=== PATIENT | male | born 1985 | race Caucasian/White ===

== ENCOUNTER 2020-01-25 08:05 | Outpatient (CLI) | payer MEDICARE, MEDICAID, SELFPAY | END 2020-01-25 08:06 | disposition home or self-care (01) | LOC: WOUND 08:08 | PROVIDERS: Family Provider Registered Nurse; PCP Registered Nurse; Visit Provider Nurse Practitioner Family | DX: I87.2 Venous insufficiency (chronic) (peripheral) (principal); L97.812 Non-pressure chronic ulcer of other part of right lower leg with fat layer exposed | CPT/HCPCS: 11042; 87070; 87077; 87176; 87186; 87205; A6545; G0463 ==

== ENCOUNTER 2020-02-01 08:13 | Outpatient (CLI) | payer MEDICARE, MEDICAID, SELFPAY | END 2020-02-01 08:14 | disposition home or self-care (01) | LOC: WOUND 08:14 | PROVIDERS: Family Provider Registered Nurse; PCP Registered Nurse; Visit Provider Thoracic Surgery (Cardiothoracic Vascular Surgery) | DX: I87.2 Venous insufficiency (chronic) (peripheral) (principal); L97.812 Non-pressure chronic ulcer of other part of right lower leg with fat layer exposed | CPT/HCPCS: 11042 ==

== ENCOUNTER 2020-02-08 08:07 | Outpatient (CLI) | payer MEDICARE, MEDICAID, SELFPAY | END 2020-02-08 08:08 | disposition home or self-care (01) | LOC: WOUND 08:08 | PROVIDERS: Family Provider Registered Nurse; PCP Registered Nurse; Visit Provider Nurse Practitioner Family | DX: I87.2 Venous insufficiency (chronic) (peripheral) (principal); L97.812 Non-pressure chronic ulcer of other part of right lower leg with fat layer exposed; M79.604 Pain in right leg; M79.605 Pain in left leg | CPT/HCPCS: 11042; 93970 ==

== ENCOUNTER 2020-02-08 10:36 | Outpatient (CLI) | payer MEDICARE, MEDICAID, SELFPAY ==
--- NOTE | 2020-02-08 11:00 | USCV_ITS ---
Sammy Ellison Age: 34 Gender: M : 1985 Exam Date: 02/08/2020 11:08 Ordering Phys: Sarabjit Carbone MD ([email or web address]) Technologist: Kim Middleton Exam Location: [facility] – [place] Indication: HISTORY: Lower extremity pain. PROCEDURES: Bilateral duplex Venous Insufficiency study of the Deep and Superficial systems was carried out according to normal protocol with the patient in supine positon for deep system and dependent position for the superficial system. FINDINGS: There is no evidence of bilateral deep vein thrombosis. No evidence of superficial thrombosis in the bilateral saphenous system. Reflux noted within the proximal and mid Right SSV. CONCLUSIONS 1. No evidence of DVT in the above-mentioned identifiable veins. 2. Significant venous reflux of greater than 500 ms were noted at the proximal and mid segments of the small saphenous vein on the right side. The reflux times were 4280 and 3320 milliseconds respectively. These venous segments where 0.51 and 1.06 cm deep from the surface and with a diameter of 0.3 and 0.44 cm. 3. The other venous segments dimensions and depth from the surface are as mentioned above 4. No significant venous reflux on the left side Dr Renetta Christianson MD [facility] (Electronically Signed) Final Date: 09 February 2020 08:25 S
== END 2020-02-08 10:37 | disposition home or self-care (01) ==
LOC: RAD 10:42
PROVIDERS: PCP Registered Nurse; Visit Provider Internal Medicine Cardiovascular Disease
DX: M79.604 Pain in right leg (principal); M79.605 Pain in left leg
CPT/HCPCS: 93970

== ENCOUNTER 2020-02-13 12:59 | Outpatient (CLI) | payer MEDICARE, MEDICAID, SELFPAY ==
--- NOTE | 2020-02-13 13:02 | USCV_ITS ---
Ellison Sammy Age: 34 Gender: M : 1985 Exam Date: 02/13/2020 12:54 Ordering Phys: Naa Mckeon Technologist: Exam Location: [facility] [place] Indication: ULCER RT LEG RIGHT LEFT Brachial 115.00 mmHg Brachial 110.00 mmHg Pressure (mmHg) Waveform Pressure (mmHg) Waveform 140.00 Above Knee 140.00 151.00 Below Knee 138.00 142.00 OPERATING ROOM RN 138.00 142.00 DPA 138.00 1.23 Ankle/Brachial Index 1.20 1.12 Pre-Exercise Toe/Brachial Index 0.79 FINDINGS Normal resting RACHEAL and TBI's bilaterally Normal PVR waveforms CONCLUSIONS No significant arterial obstruction, based on the above findings Dr Renetta Christianson MD [facility] (Electronically Signed) Final Date: 14 February 2020 18:43 S
== END 2020-02-13 13:00 | disposition home or self-care (01) ==
LOC: US 13:01
PROVIDERS: PCP Registered Nurse; Visit Provider Nurse Practitioner Family
DX: M79.604 Pain in right leg (principal); M79.605 Pain in left leg; L53.9 Erythematous condition, unspecified; L97.929 Non-pressure chronic ulcer of unspecified part of left lower leg with unspecified severity; L97.919 Non-pressure chronic ulcer of unspecified part of right lower leg with unspecified severity
CPT/HCPCS: 93923

== ENCOUNTER 2020-02-15 13:05 | Outpatient (CLI) | payer MEDICARE, MEDICAID, SELFPAY | END 2020-02-15 13:06 | disposition home or self-care (01) | LOC: WOUND 13:07 | PROVIDERS: PCP Registered Nurse; Visit Provider Emergency Medicine | DX: I87.2 Venous insufficiency (chronic) (peripheral) (principal); L97.812 Non-pressure chronic ulcer of other part of right lower leg with fat layer exposed | CPT/HCPCS: 11042; 87070; 87077; 87176; 87186; 87205 ==

== ENCOUNTER 2020-02-17 13:15 | Outpatient (CLI) | payer MEDICARE, MEDICAID, SELFPAY | END 2020-02-17 13:16 | disposition home or self-care (01) | LOC: WOUND 13:17 | PROVIDERS: PCP Registered Nurse; Visit Provider Surgery | DX: I87.2 Venous insufficiency (chronic) (peripheral) (principal); L97.812 Non-pressure chronic ulcer of other part of right lower leg with fat layer exposed | CPT/HCPCS: 29581 ==

== ENCOUNTER 2020-02-22 13:43 | Outpatient (CLI) | payer MEDICARE, MEDICAID, SELFPAY | END 2020-02-22 13:44 | disposition home or self-care (01) | LOC: WOUND 13:45 | PROVIDERS: PCP Registered Nurse; Visit Provider Emergency Medicine | DX: I87.2 Venous insufficiency (chronic) (peripheral) (principal); L97.812 Non-pressure chronic ulcer of other part of right lower leg with fat layer exposed | CPT/HCPCS: 11042 ==

== ENCOUNTER 2020-02-28 10:00 | Outpatient (CLI) | payer MEDICARE, MEDICAID, SELFPAY ==
[2020-02-25 17:02] LABS: Coronavirus Lab Test PTC Negative
== END 2020-02-28 10:01 | disposition home or self-care (01) ==
LOC: LAB 11-24 14:02
PROVIDERS: PCP Registered Nurse; Visit Provider Internal Medicine Cardiovascular Disease
DX: Z20.828 Contact with and (suspected) exposure to other viral communicable diseases (principal)
CPT/HCPCS: 87635

== ENCOUNTER 2020-02-29 08:51 | Outpatient (CLI) | payer MEDICARE, MEDICAID, SELFPAY | END 2020-02-29 08:52 | disposition home or self-care (01) | LOC: WOUND 08:52 | PROVIDERS: PCP Registered Nurse; Visit Provider Emergency Medicine | DX: I87.2 Venous insufficiency (chronic) (peripheral) (principal); L97.512 Non-pressure chronic ulcer of other part of right foot with fat layer exposed | CPT/HCPCS: 15275; Q4160 ==

== ENCOUNTER 2020-03-07 08:40 | Outpatient (CLI) | payer MEDICARE, MEDICAID, SELFPAY | END 2020-03-07 08:41 | disposition home or self-care (01) | LOC: WOUND 08:41 | PROVIDERS: PCP Registered Nurse; Visit Provider Emergency Medicine | DX: I87.2 Venous insufficiency (chronic) (peripheral) (principal); L97.812 Non-pressure chronic ulcer of other part of right lower leg with fat layer exposed | CPT/HCPCS: 15271; Q4160 ==

== ENCOUNTER 2020-03-14 09:39 | Outpatient (CLI) | payer MEDICARE, MEDICAID, SELFPAY | END 2020-03-14 09:40 | disposition home or self-care (01) | LOC: WOUND 09:40 | PROVIDERS: PCP Registered Nurse; Visit Provider Nurse Practitioner Family | DX: I87.2 Venous insufficiency (chronic) (peripheral) (principal); L97.812 Non-pressure chronic ulcer of other part of right lower leg with fat layer exposed | CPT/HCPCS: 15271; Q4160 ==

== ENCOUNTER 2020-03-21 10:42 | Outpatient (CLI) | payer MEDICARE, MEDICAID, SELFPAY | END 2020-03-21 10:43 | disposition home or self-care (01) | LOC: WOUND 10:43 | PROVIDERS: PCP Registered Nurse; Visit Provider Nurse Practitioner Family | DX: I87.2 Venous insufficiency (chronic) (peripheral) (principal); L97.812 Non-pressure chronic ulcer of other part of right lower leg with fat layer exposed | CPT/HCPCS: 11042 ==

== ENCOUNTER 2020-03-28 07:56 | Outpatient (CLI) | payer MEDICARE, MEDICAID, SELFPAY | END 2020-03-28 07:57 | disposition home or self-care (01) | LOC: WOUND 07:57 | PROVIDERS: PCP Registered Nurse; Visit Provider Surgery | DX: I87.2 Venous insufficiency (chronic) (peripheral) (principal); L97.812 Non-pressure chronic ulcer of other part of right lower leg with fat layer exposed | CPT/HCPCS: 29581 ==

== ENCOUNTER 2020-04-04 08:25 | Outpatient (CLI) | payer MEDICARE, MEDICAID, SELFPAY | END 2020-04-04 08:26 | disposition home or self-care (01) | LOC: WOUND 08:25 | PROVIDERS: PCP Registered Nurse; Visit Provider Nurse Practitioner Family | DX: I87.2 Venous insufficiency (chronic) (peripheral) (principal); L97.812 Non-pressure chronic ulcer of other part of right lower leg with fat layer exposed | CPT/HCPCS: 11042 ==

== ENCOUNTER 2020-04-11 08:38 | Outpatient (CLI) | payer MEDICARE, MEDICAID, SELFPAY | END 2020-04-11 08:39 | disposition home or self-care (01) | LOC: WOUND 08:41 | PROVIDERS: PCP Registered Nurse; Visit Provider Thoracic Surgery (Cardiothoracic Vascular Surgery) | DX: I87.2 Venous insufficiency (chronic) (peripheral) (principal); L97.812 Non-pressure chronic ulcer of other part of right lower leg with fat layer exposed | CPT/HCPCS: 11042 ==

== ENCOUNTER → 2020-04-16 07:14 | Day surgery (SDC) | payer MEDICARE, MEDICAID, SELFPAY ==
[2020-04-14 14:53] LABS: Quest SARS-CoV-2 RNA NOT DETECTED (NOT DETECTED)
[2020-04-16 08:41] VITALS: BP 130/83; PULSE 77; RESP 18; TEMP 37; O2SAT 100; BMI 27.0
--- NOTE | 2020-04-16 09:04 | PC.NURSE ---
procedure delay delay due to dr fernandez intervening in yard labor supervisor with dr rosen pt. pt notified of delay.
--- NOTE | 2020-04-16 09:34 | P.HP_ITS ---
Same Day Surgery H&P Indication for Procedure/HPI DATE OF PROCEDURE: April 16, 2020 CHIEF COMPLAINT/INDICATIONFOR SURGICAL PROCEDURE: Symptomatic varicose veins with swollen painful right foot which has developed neuropathy. Patient has failed conservative management PREOP DIAGNOSIS: Symptomatic varicose veins PLANNED PROCEDRUE: Operation Date: 04/16/20 08:30 Proposed Procedures p Venous Ablations(Not Applicable) - Sarabjit Carbone MD Patient continues to have lower extremity edema with varicose veins on the back of right lower leg. He underwent ultrasound which showed significant venous reflux and right short saphenous vein. He has failed conservative management for the last more than 4 months by wearing compression stockings. He continues to be symptomatic with pain cramps difficulty in walking due to edema and paresthesia due to a nerve problem. PROCEDURES: Bilateral duplex Venous Insufficiency study of the Deep and Superficial systems was carried out according to normal protocol with the patient in supine positon for deep system and dependent position for the superficial system. FINDINGS: There is no evidence of bilateral deep vein thrombosis. No evidence of superficial thrombosis in the bilateral saphenous system. Reflux noted within the proximal and mid Right SSV. CONCLUSIONS 1. No evidence of DVT in the above-mentioned identifiable veins. 2. Significant venous reflux of greater than 500 ms were noted at the proximal and mid segments of the small saphenous vein on the right side. The reflux times were 4280 and 3320 milliseconds respectively. These venous segments where 0.51 and 1.06 cm deep from the surface and with a diameter of 0.3 and 0.44 cm. 3. The other venous segments dimensions and depth from the surface are as mentioned above 4. No significant venous reflux on the left side Dr Renetta Christianson MD [facility] (Electronically Signed) Final Date: 09 February 2020` Today patient was brought in after failing the conservative management for right short saphenous vein ablation. Patient has been explained by myself in detail all the risk benefit and alternative for the procedure. He has been given the option for referral to surgery. He understand the risk of damaging sural nerve during ablation leading to severe neuropathy and dropfoot, he understand the risk of deep venous thrombosis and pulmonary embolism. He would like to proceed with it. He thinks he is getting worse. Medications/Allergies* Home Medications Medication Instructions Recorded Confirmed Type levetiracetam 500 mg tablet 500 mg PO BID 11/25/19 04/13/20 History levocetirizine 5 mg tablet 5 mg PO DAILY 11/25/19 04/13/20 History oxcarbazepine 600 mg tablet 600 mg PO BID 11/25/19 04/13/20 History topiramate 200 mg tablet 200 mg PO BID 11/25/19 04/13/20 History Allergies/Adverse Reactions Allergy/AdvReac Type Severity Reaction Status Date / Time pollen extracts Allergy Unknown unknown Verified 02/17/20 11:50 Pertinent History/Comorbid Conditions* Medical History (Updated 02/21/20 @ 21:44 by Sarabjit Carbone MD) Pericardial effusion Varicose 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 Recommendations Surgery/Procedure today Coding Level of Care Code Acute Production Team Manager for Chg Fwd Diagnoses Varicose veins of bilateral lower extremities with other complications I83.893
--- NOTE | 2020-04-16 09:38 | W.PM.OPSUD ---
Surgery/Procedure H&P Update DATE OF PROCEDURE: April 16, 2020 DATE H&P PERFORMED: 04/16/20 H&P UPDATE INFORMATION: I have examined patient prior to procedure and No changes to prior documentation PREOP DIAGNOSIS: Symptomatic varicose veins PLANNED PROCEDURE: Operation Date: 04/16/20 08:30 Proposed Procedures p Venous Ablations(Not Applicable) - Sarabjit Carbone MD PATIENT REASSESSED PRIOR TO SEDATION, WITH NO CHANGE NOTED: Yes PHYSICAL EXAM: alert, oriented x 3, clear to auscultation bilaterally and regular rate & rhythm AIRWAY EVAL/ANESTHESIA PLAN: normal airway, ASA II, Risks, benefits & alternatives of sedation and/or procedure discussed and Patient agrees to continue as planned
--- NOTE | 2020-04-16 10:52 | PM.PROC ---
Procedure Note: Date of procedure: 04/16/20 Pre-procedure diagnosis: Symptomatic varicose veins of right short saphenous territory Post-procedure diagnosis: same Other Information: Under sterile ice condition after careful mapping short saphenous vein under ultrasound guidance I introduced needle in the short saphenous vein just above the mid gastrocnemius level on the right side in order to avoid the sural nerve on the lower and lateral border. My wire did not pass beyond the distal end of short saphenous due to a lot of collaterals and try decrease. We tried coronary wire. I also tried introducing 6 [place] short sheath over which I tried ablation catheter however because of a lot of resistance and because of the fact patient has lot of collaterals coming out of distal end of short saphenous vein we aborted the procedure. We have a plan to send the patient to the vascular surgery for possible venous stripping or glue/radiofrequency ablation which ever is appropriate along with foam injections. Please note that procedure was not successful therefore we stopped it. Patient has no complication. Coding Level of Care Code Acute Digital Watch Assembler for Enrique Quinteros
--- NOTE | 2020-04-16 10:53 | PC.NURSE ---
Procedure Note Unable to perform procedure. See Dr. Carbone's progress note. Unable to obtain venous access in the right short saph despite multiple attempts. The sites were covered with 4 x 4s and secured with coban.
[2020-04-16 11:00] VITALS: BP 128/80; PULSE 76; RESP 16; TEMP 37; O2SAT 96
== END | disposition home or self-care (01) ==
PROVIDERS: PCP Registered Nurse; Visit Provider Internal Medicine Cardiovascular Disease
PROC: (CPT 37799; principal; 2020-04-16 08:30)
DX: I83.893 Varicose veins of bilateral lower extremities with other complications (principal)
CPT/HCPCS: 37799; 12345; 87635; C1769; C1888; C1894; J7040; J7050

== ENCOUNTER 2020-04-18 14:56 | Outpatient (CLI) | payer MEDICARE, MEDICAID, SELFPAY | END 2020-04-18 14:57 | disposition home or self-care (01) | LOC: WOUND 14:57 | PROVIDERS: PCP Registered Nurse; Visit Provider Thoracic Surgery (Cardiothoracic Vascular Surgery) | DX: I87.2 Venous insufficiency (chronic) (peripheral) (principal); L97.812 Non-pressure chronic ulcer of other part of right lower leg with fat layer exposed | CPT/HCPCS: 11042 ==

== ENCOUNTER 2020-04-25 08:50 | Outpatient (CLI) | payer MEDICARE, MEDICAID, SELFPAY | END 2020-04-25 08:51 | disposition home or self-care (01) | LOC: WOUND 08:51 | PROVIDERS: PCP Registered Nurse; Visit Provider Thoracic Surgery (Cardiothoracic Vascular Surgery) | DX: I87.2 Venous insufficiency (chronic) (peripheral) (principal); L97.812 Non-pressure chronic ulcer of other part of right lower leg with fat layer exposed | CPT/HCPCS: 11042 ==

== ENCOUNTER 2020-05-02 13:34 | Outpatient (CLI) | payer MEDICARE, MEDICAID, SELFPAY | END 2020-05-02 13:35 | disposition home or self-care (01) | LOC: WOUND 13:35 | PROVIDERS: PCP Registered Nurse; Visit Provider Thoracic Surgery (Cardiothoracic Vascular Surgery) | DX: I87.2 Venous insufficiency (chronic) (peripheral) (principal); L97.812 Non-pressure chronic ulcer of other part of right lower leg with fat layer exposed | CPT/HCPCS: 11042 ==

== ENCOUNTER 2020-05-16 10:32 | Outpatient (CLI) | payer MEDICARE, MEDICAID, SELFPAY | END 2020-05-16 10:33 | disposition home or self-care (01) | LOC: WOUND 10:33 | PROVIDERS: PCP Registered Nurse; Visit Provider Nurse Practitioner Family | DX: I87.2 Venous insufficiency (chronic) (peripheral) (principal); L97.812 Non-pressure chronic ulcer of other part of right lower leg with fat layer exposed | CPT/HCPCS: 11042 ==

== ENCOUNTER 2020-05-23 11:05 | Outpatient (CLI) | payer MEDICARE, MEDICAID, SELFPAY | END 2020-05-23 11:06 | disposition home or self-care (01) | LOC: WOUND 11:07 | PROVIDERS: PCP Registered Nurse; Visit Provider Thoracic Surgery (Cardiothoracic Vascular Surgery) | DX: I87.2 Venous insufficiency (chronic) (peripheral) (principal); L97.812 Non-pressure chronic ulcer of other part of right lower leg with fat layer exposed | CPT/HCPCS: 11042 ==

== ENCOUNTER 2020-06-06 09:20 | Outpatient (CLI) | payer MEDICARE, MEDICAID, SELFPAY | END 2020-06-06 09:21 | disposition home or self-care (01) | LOC: WOUND 09:21 | PROVIDERS: PCP Registered Nurse; Visit Provider Thoracic Surgery (Cardiothoracic Vascular Surgery) | DX: I87.2 Venous insufficiency (chronic) (peripheral) (principal); L97.812 Non-pressure chronic ulcer of other part of right lower leg with fat layer exposed | CPT/HCPCS: 11042 ==

== ENCOUNTER 2020-06-13 09:05 | Outpatient (CLI) | payer MEDICARE, MEDICAID, SELFPAY | END 2020-06-13 09:06 | disposition home or self-care (01) | LOC: WOUND 09:06 | PROVIDERS: PCP Registered Nurse; Visit Provider Nurse Practitioner Family | DX: I87.2 Venous insufficiency (chronic) (peripheral) (principal); L97.812 Non-pressure chronic ulcer of other part of right lower leg with fat layer exposed | CPT/HCPCS: 11042 ==

== ENCOUNTER 2020-06-20 08:30 | Outpatient (CLI) | payer MEDICARE, MEDICAID, SELFPAY | END 2020-06-20 08:31 | disposition home or self-care (01) | LOC: WOUND 08:34 | PROVIDERS: PCP Registered Nurse; Visit Provider Nurse Practitioner Family | DX: I87.2 Venous insufficiency (chronic) (peripheral) (principal); L97.812 Non-pressure chronic ulcer of other part of right lower leg with fat layer exposed | CPT/HCPCS: 29581 ==

== ENCOUNTER 2020-06-27 09:08 | Outpatient (CLI) | payer MEDICARE, MEDICAID, SELFPAY | END 2020-06-27 09:09 | disposition home or self-care (01) | LOC: WOUND 09:09 | PROVIDERS: Visit Provider Thoracic Surgery (Cardiothoracic Vascular Surgery) | DX: I87.2 Venous insufficiency (chronic) (peripheral) (principal); L97.812 Non-pressure chronic ulcer of other part of right lower leg with fat layer exposed | CPT/HCPCS: 15271; Q4160 ==

== ENCOUNTER 2020-07-04 08:46 | Outpatient (CLI) | payer MEDICARE, MEDICAID, SELFPAY | END 2020-07-04 08:47 | disposition home or self-care (01) | LOC: WOUND 08:47 | PROVIDERS: Visit Provider Thoracic Surgery (Cardiothoracic Vascular Surgery) | DX: I87.2 Venous insufficiency (chronic) (peripheral) (principal); L97.812 Non-pressure chronic ulcer of other part of right lower leg with fat layer exposed | CPT/HCPCS: 15271; Q4160 ==

== ENCOUNTER 2020-07-11 08:58 | Outpatient (CLI) | payer MEDICARE, MEDICAID, SELFPAY | END 2020-07-11 08:59 | disposition home or self-care (01) | LOC: WOUND 08:59 | PROVIDERS: Visit Provider Thoracic Surgery (Cardiothoracic Vascular Surgery) | DX: I87.2 Venous insufficiency (chronic) (peripheral) (principal); L97.812 Non-pressure chronic ulcer of other part of right lower leg with fat layer exposed | CPT/HCPCS: 11042 ==

== ENCOUNTER 2020-07-19 13:35 | Outpatient (CLI) | payer MEDICARE, MEDICAID, SELFPAY | END 2020-07-19 13:36 | disposition home or self-care (01) | LOC: WOUND 13:36 | PROVIDERS: Visit Provider Thoracic Surgery (Cardiothoracic Vascular Surgery) | DX: L97.812 Non-pressure chronic ulcer of other part of right lower leg with fat layer exposed (principal); I87.2 Venous insufficiency (chronic) (peripheral) | CPT/HCPCS: 11042 ==

== ENCOUNTER 2020-07-24 10:36 | Outpatient (CLI) | payer MEDICARE, MEDICAID, SELFPAY | END 2020-07-24 10:37 | disposition home or self-care (01) | LOC: WOUND 10:36 | PROVIDERS: Visit Provider Thoracic Surgery (Cardiothoracic Vascular Surgery) | DX: L97.812 Non-pressure chronic ulcer of other part of right lower leg with fat layer exposed (principal); I87.2 Venous insufficiency (chronic) (peripheral) | CPT/HCPCS: 11042 ==

== ENCOUNTER 2020-08-15 11:17 | Outpatient (CLI) | payer MEDICARE, MEDICAID, SELFPAY | END 2020-08-15 11:18 | disposition home or self-care (01) | LOC: WOUND 11:18 | PROVIDERS: Visit Provider Thoracic Surgery (Cardiothoracic Vascular Surgery) | DX: I87.2 Venous insufficiency (chronic) (peripheral) (principal); L97.812 Non-pressure chronic ulcer of other part of right lower leg with fat layer exposed | CPT/HCPCS: 11042 ==

== ENCOUNTER 2020-08-21 11:09 | Outpatient (CLI) | payer MEDICARE, MEDICAID, SELFPAY | END 2020-08-21 11:10 | disposition home or self-care (01) | LOC: WOUND 11:11 | PROVIDERS: Visit Provider Thoracic Surgery (Cardiothoracic Vascular Surgery) | DX: I87.2 Venous insufficiency (chronic) (peripheral) (principal); L97.812 Non-pressure chronic ulcer of other part of right lower leg with fat layer exposed | CPT/HCPCS: 11042 ==

== ENCOUNTER 2020-08-28 11:06 | Outpatient (CLI) | payer MEDICARE, MEDICAID, SELFPAY | END 2020-08-28 11:07 | disposition home or self-care (01) | LOC: WOUND 11:08 | PROVIDERS: Visit Provider Thoracic Surgery (Cardiothoracic Vascular Surgery) | DX: I87.2 Venous insufficiency (chronic) (peripheral) (principal); L97.812 Non-pressure chronic ulcer of other part of right lower leg with fat layer exposed | CPT/HCPCS: 15271; Q4187 ==

== ENCOUNTER 2020-08-31 14:55 | Outpatient (CLI) | payer MEDICARE, MEDICAID, SELFPAY | END 2020-08-31 14:56 | disposition home or self-care (01) | LOC: WOUND 14:56 | PROVIDERS: Visit Provider Surgery | DX: I87.2 Venous insufficiency (chronic) (peripheral) (principal); L97.812 Non-pressure chronic ulcer of other part of right lower leg with fat layer exposed | CPT/HCPCS: 29581 ==

== ENCOUNTER 2020-09-04 13:51 | Outpatient (CLI) | payer MEDICARE, MEDICAID, SELFPAY | END 2020-09-04 13:52 | disposition home or self-care (01) | LOC: WOUND 13:52 | PROVIDERS: Visit Provider Thoracic Surgery (Cardiothoracic Vascular Surgery) | DX: I87.2 Venous insufficiency (chronic) (peripheral) (principal); L97.812 Non-pressure chronic ulcer of other part of right lower leg with fat layer exposed | CPT/HCPCS: 15271; Q4187 ==

== ENCOUNTER 2020-09-11 11:17 | Outpatient (CLI) | payer MEDICARE, MEDICAID, SELFPAY | END 2020-09-11 11:18 | disposition home or self-care (01) | LOC: WOUND 11:18 | PROVIDERS: PCP Registered Nurse; Visit Provider Thoracic Surgery (Cardiothoracic Vascular Surgery) | DX: I87.2 Venous insufficiency (chronic) (peripheral) (principal); L97.812 Non-pressure chronic ulcer of other part of right lower leg with fat layer exposed | CPT/HCPCS: 11042 ==

== ENCOUNTER 2020-09-18 10:40 | Outpatient (CLI) | payer MEDICARE, MEDICAID, SELFPAY | END 2020-09-18 10:41 | disposition home or self-care (01) | LOC: WOUND 10:43 | PROVIDERS: PCP Registered Nurse; Visit Provider Thoracic Surgery (Cardiothoracic Vascular Surgery) | DX: I87.2 Venous insufficiency (chronic) (peripheral) (principal); L97.812 Non-pressure chronic ulcer of other part of right lower leg with fat layer exposed | CPT/HCPCS: 11042 ==

== ENCOUNTER 2020-09-25 09:08 | Outpatient (CLI) | payer MEDICARE, MEDICAID, SELFPAY | END 2020-09-25 09:09 | disposition home or self-care (01) | LOC: WOUND 09:09 | PROVIDERS: PCP Registered Nurse; Visit Provider Thoracic Surgery (Cardiothoracic Vascular Surgery) | DX: I87.2 Venous insufficiency (chronic) (peripheral) (principal); L97.812 Non-pressure chronic ulcer of other part of right lower leg with fat layer exposed | CPT/HCPCS: 11042 ==

== ENCOUNTER 2020-10-02 08:58 | Outpatient (CLI) | payer MEDICARE, MEDICAID, SELFPAY | END 2020-10-02 08:59 | disposition home or self-care (01) | LOC: WOUND 08:59 | PROVIDERS: PCP Registered Nurse; Visit Provider Thoracic Surgery (Cardiothoracic Vascular Surgery) | DX: I87.2 Venous insufficiency (chronic) (peripheral) (principal); L97.812 Non-pressure chronic ulcer of other part of right lower leg with fat layer exposed | CPT/HCPCS: 11042 ==

== ENCOUNTER 2020-10-09 09:08 | Outpatient (CLI) | payer MEDICARE, MEDICAID, SELFPAY | END 2020-10-09 09:09 | disposition home or self-care (01) | LOC: WOUND 09:09 | PROVIDERS: PCP Registered Nurse; Visit Provider Thoracic Surgery (Cardiothoracic Vascular Surgery) | DX: I87.2 Venous insufficiency (chronic) (peripheral) (principal); L97.812 Non-pressure chronic ulcer of other part of right lower leg with fat layer exposed | CPT/HCPCS: 11042 ==

== ENCOUNTER 2020-10-16 09:18 | Outpatient (CLI) | payer MEDICARE, MEDICAID, SELFPAY | END 2020-10-16 09:19 | disposition home or self-care (01) | LOC: WOUND 09:20 | PROVIDERS: PCP Registered Nurse; Visit Provider Thoracic Surgery (Cardiothoracic Vascular Surgery) | DX: I87.2 Venous insufficiency (chronic) (peripheral) (principal); L97.812 Non-pressure chronic ulcer of other part of right lower leg with fat layer exposed | CPT/HCPCS: 97597 ==

== ENCOUNTER 2020-10-24 14:29 | Outpatient (CLI) | payer MEDICARE, MEDICAID, SELFPAY | END 2020-10-24 14:30 | disposition home or self-care (01) | LOC: WOUND 14:31 | PROVIDERS: PCP Registered Nurse; Visit Provider Thoracic Surgery (Cardiothoracic Vascular Surgery) | DX: I87.2 Venous insufficiency (chronic) (peripheral) (principal); L97.812 Non-pressure chronic ulcer of other part of right lower leg with fat layer exposed | CPT/HCPCS: 11042 ==

== ENCOUNTER 2020-10-30 11:05 | Outpatient (CLI) | payer MEDICARE, MEDICAID, SELFPAY | END 2020-10-30 11:06 | disposition home or self-care (01) | LOC: WOUND 11:06 | PROVIDERS: PCP Registered Nurse; Visit Provider Thoracic Surgery (Cardiothoracic Vascular Surgery) | DX: Z09 Encounter for follow-up examination after completed treatment for conditions other than malignant neoplasm (principal) | CPT/HCPCS: 99212 ==

== ENCOUNTER 2020-11-06 10:19 | Outpatient (CLI) | payer MEDICARE, MEDICAID, SELFPAY | END 2020-11-06 10:20 | disposition home or self-care (01) | LOC: WOUND 10:20 | PROVIDERS: PCP Registered Nurse; Visit Provider Thoracic Surgery (Cardiothoracic Vascular Surgery) | DX: Z09 Encounter for follow-up examination after completed treatment for conditions other than malignant neoplasm (principal) | CPT/HCPCS: 99212 ==

== ENCOUNTER 2020-11-15 10:45 | Outpatient (CLI) | payer MEDICARE, MEDICAID, SELFPAY | END 2020-11-15 10:46 | disposition home or self-care (01) | LOC: WOUND 10:46 | PROVIDERS: PCP Registered Nurse; Visit Provider Nurse Practitioner Family | DX: I87.2 Venous insufficiency (chronic) (peripheral) (principal); L97.811 Non-pressure chronic ulcer of other part of right lower leg limited to breakdown of skin | CPT/HCPCS: 29581 ==

== ENCOUNTER 2020-11-22 10:34 | Outpatient (CLI) | payer MEDICARE, MEDICAID, SELFPAY | END 2020-11-22 10:35 | disposition home or self-care (01) | LOC: WOUND 10:36 | PROVIDERS: PCP Registered Nurse; Visit Provider Nurse Practitioner Family | DX: I87.2 Venous insufficiency (chronic) (peripheral) (principal); L97.811 Non-pressure chronic ulcer of other part of right lower leg limited to breakdown of skin | CPT/HCPCS: 11042 ==

== ENCOUNTER 2020-11-27 09:15 | Outpatient (CLI) | payer MEDICARE, MEDICAID, SELFPAY | END 2020-11-27 09:16 | disposition home or self-care (01) | LOC: WOUND 09:15 | PROVIDERS: PCP Registered Nurse; Visit Provider Thoracic Surgery (Cardiothoracic Vascular Surgery) | DX: Z09 Encounter for follow-up examination after completed treatment for conditions other than malignant neoplasm (principal) | CPT/HCPCS: 29581 ==

== ENCOUNTER 2020-12-04 08:55 | Outpatient (CLI) | payer MEDICARE, MEDICAID, SELFPAY | END 2020-12-04 08:56 | disposition home or self-care (01) | LOC: WOUND 08:57 | PROVIDERS: PCP Registered Nurse; Visit Provider Thoracic Surgery (Cardiothoracic Vascular Surgery) | DX: Z09 Encounter for follow-up examination after completed treatment for conditions other than malignant neoplasm (principal) | CPT/HCPCS: 99212 ==

== ENCOUNTER 2021-02-12 13:32 | Outpatient (CLI) | payer MEDICARE, MEDICAID, SELFPAY | END 2021-02-12 13:33 | disposition home or self-care (01) | LOC: WOUND 13:33 | PROVIDERS: PCP Registered Nurse; Visit Provider Nurse Practitioner Family | DX: I87.2 Venous insufficiency (chronic) (peripheral) (principal); L97.512 Non-pressure chronic ulcer of other part of right foot with fat layer exposed | CPT/HCPCS: 11042; 99212 ==

== ENCOUNTER 2021-02-19 14:32 | Outpatient (CLI) | payer MEDICARE, MEDICAID, SELFPAY | END 2021-02-19 14:33 | disposition home or self-care (01) | LOC: WOUND 14:33 | PROVIDERS: PCP Registered Nurse; Visit Provider Thoracic Surgery (Cardiothoracic Vascular Surgery) | DX: Z09 Encounter for follow-up examination after completed treatment for conditions other than malignant neoplasm (principal) | CPT/HCPCS: 99212 ==